=== PATIENT | female | born 1985 | race Caucasian/White ===

== ENCOUNTER 2022-06-27 09:55 | Emergency (ER) | payer MEDICAID ==
[~2022-06-27] VITALS: Ht 157.5 cm; Wt 100.0 kg
[2022-06-27] MEDS ORDERED: orphenadrine citrate 60mg/2ml inj. IM ONE (10:00)
[2022-06-27] MEDS ORDERED: HYDROcodone/acetaminophen 5mg/325mg tablet PO ONE (10:00)
[2022-06-27] MEDS ORDERED: ketorolac trometh inj. 60 MG/2 ML VIAL IM ONE (10:00)
[2022-06-27] MEDS ORDERED: cyclobenzaprine 10mg tablet PO ONE (10:30)
[2022-06-27] MEDS ORDERED: diazepam 5mg tablet PO ONE (11:05)
[2022-06-27] MEDS ORDERED: NAPR-56 PO (11:22)
[2022-06-27] MEDS ORDERED: ORPH100T4 PO (11:22)
[2022-06-27] MEDS ORDERED: TRAM50TA2 PO (11:22)
[2022-06-27 11:45] VITALS: BP 102/62
[2022-06-27] MEDS ORDERED: proCHLORperazine 10mg tablet PO ONE (11:55)
[2022-06-27] MEDS ORDERED: morphine 4 MG/ML inj SYRINge IM ONE (11:55)
== END 2022-06-27 12:37 | disposition home or self-care (01) ==
LOC: ER 09:57
DX: S39.012A Strain of muscle, fascia and tendon of lower back, initial encounter (principal); G89.29 Other chronic pain; M54.59 Other low back pain; Z91.018 Allergy to other foods; X58.XXXA Exposure to other specified factors, initial encounter; Y93.89 Activity, other specified; Y92.89 Other specified places as the place of occurrence of the external cause; Y99.8 Other external cause status
CPT/HCPCS: 96372; 99284; J1885; J2270; Q0164

== ENCOUNTER 2022-06-30 10:22 | Emergency (ER) | payer MEDICAID ==
[~2022-06-30] VITALS: Ht 157.5 cm; Wt 97.7 kg
[~2022-06-30 10:22] MED LIST: NAPR-56 PO; ORPH100T4 PO; TRAM50TA2 PO
[2022-06-30 11:25] VITALS: BP 113/87
== END 2022-06-30 22:31 | disposition left against medical advice (07) ==
LOC: ER 10:24
DX: M54.9 Dorsalgia, unspecified (principal); Z53.21 Procedure and treatment not carried out due to patient leaving prior to being seen by health care provider
CPT/HCPCS: 99281